=== PATIENT | female | born 1985 | race American Indian/Alaskan Native ===

== ENCOUNTER 2018-06-23 19:30 | Inpatient (IN) | payer BC ==
[2018-06-23] MEDS ORDERED: Sodium Chloride 0.9% 1,000 ML IV STA (20:58)
--- NOTE | 2018-06-23 21:01 | C.PDOC ---
History Of Present Illness 33 y/o F c PMHx asthma p/w abdominal pain x 2 weeks. Pain is epigastric, severe , sharp, worse after eating, associated with nausea. Denies fever, chills, chest pain, dyspnea, vomiting, dysuria, vaginal bleeding, diarrhea. Time Seen by Provider: 06/23/18 20:43 Chief Complaint (Nursing): Abdominal Pain History Per: Patient History/Exam Limitations: no limitations Onset/Duration Of Symptoms: Days Current Symptoms Are (Timing): Still Present Severity: Severe Location Of Pain/Discomfort: Epigastric Quality Of Discomfort: Sharp Associated Symptoms: Nausea. denies: Fever, Chills, Urinary Symptoms Exacerbating Factors: Food Alleviating Factors: None Recent travel outside of the [place]: No Additional History Per: Patient Abnormal Vaginal Bleeding: No Past Medical History Reviewed: Historical Data, Nursing Documentation, Vital Signs Vital Signs: Last Vital Signs Temp 99.4 F 06/23/18 22:02 Pulse 75 06/23/18 22:02 Resp 17 06/23/18 22:02 BP 128/84 06/23/18 22:02 Pulse Ox 99 06/23/18 22:02 - Medical History PMH: Asthma Surgical History: No Surg Hx Family History: States: Unknown Family Hx - Social History Hx Alcohol Use: Yes Hx Substance Use: No Review Of Systems Except As Marked, All Systems Reviewed And Found Negative. Constitutional: Negative for: Fever Cardiovascular: Negative for: Chest Pain Physical Exam - Physical Exam Additional Physical Exam Comments: Constitutional: No acute distress. Head: Normocephalic. Atraumatic. Eyes: PERRL. ENT: Moist mucous membranes. Neck: Supple. Cardiovascular: Regular rate. Radial pulse 2+ bilaterally. Chest: No tenderness. Respiratory: Clear to auscultation bilaterally. GI: Soft. RUQ/epigastric tenderness with guarding. Nondistended. Back: No CVA tenderness. Musculoskeletal: No tenderness or swelling of extremities. Skin: No rash. Neurologic: Alert, no focal deficit. ED Course And Treatment - Laboratory Results Result Diagrams: 06/23/18 21:22 06/23/18 21:22 O2 Sat by Pulse Oximetry: 99 (ON RA) Pulse Ox Interpretation: Normal Medical Decision Making Medical Decision Making: Plan: * Labs * IV fluids * Toradol 30 mg IVP * Zofran 8 mg IVP * Urine culture * UA * US abdomen IMPRESSION: 1. Gallbladder stones largest 2 cm. Nonmobile stone in the gallbladder neck. No pericholecystic fluid. 2. Common bile duct prominent 0.[address] Webb accepts to his service. Dr. Francis and Luis consults placed. Disposition - Disposition Disposition: HOSPITALIZED Disposition Time: 23:44 Condition: GUARDED Forms: [facility] (Chinese) - Clinical Impression Clinical Impression: Common bile duct dilatation, Cholelithiasis - Scribe Statement The provider has reviewed the documentation as recorded by the Scribe Benjamin Cooper All medical record entries made by the Scribe were at my direction and personally dictated by me. I have reviewed the chart and agree that the record accurately reflects my personal performance of the history, physical exam, medical decision making, and the department course for this patient. I have also personally directed, reviewed, and agree with the discharge instructions and disposition.
[2018-06-23] MEDS ORDERED: Sodium Chloride 0.9% 1,000 ML ONE (21:14)
[2018-06-23 21:28] LABS: BASO % 0.5 % (0.0-2.0); EOS # 0.2 K/uL (0.0-0.7); EOS % 2.9 % (0.0-4.0); HEMOGLOBIN 13.2 g/dL (11.0-16.0); LYMPH # 3.8 K/uL (1.0-4.3); LYMPH % 51.4 % (20.0-40.0); MEAN CELL VOLUME 81.7 fL (81.0-99.0); MEAN CORPUSCULAR HEMOGLOBIN 27.3 pg (27.0-31.0); MEAN CORPUSCULAR HGB CONC 33.4 g/dL (33.0-37.0); MEAN PLATELET VOLUME 8.4 fL (7.2-11.7); MONO # 0.5 K/uL (0.0-0.8); MONO % 6.4 % (0.0-10.0); NEUT # 2.9 K/uL (1.8-7.0); NEUT % 38.8 % (50.0-75.0); NRBC % 0.1 % (0.0-2.0); RBC 4.85 Mil/uL (3.80-5.20); RED CELL DISTRIBUTION WIDTH 12.6 % (11.5-14.5); WHITE BLOOD COUNT 7.4 K/uL (4.8-10.8)
[2018-06-23 21:54] LABS: ALB/GLOB RATIO 1.3 (1.0-2.1); ALBUMIN 4.5 g/dL (3.5-5.0); ALT/SGPT 43 U/L (9-52); AST/SGOT 51 U/L (14-36); BLOOD UREA NITROGEN 8 mg/dL (7-17); CALCIUM 9.5 mg/dl (8.6-10.4); GFR NON-AFRICAN AMERICAN > 60; LIPASE 61 U/L (23-300)
[2018-06-23 23:21] LABS: SQUAMOUS EPITHIAL 7 /hpf (0-5); URINE BACTERIA OCC (<OCC); URINE BILIRUBIN NEGATIVE (NEGATIVE); URINE BLOOD NEGATIVE (NEGATIVE); URINE CLARITY Hazy (Clear); URINE COLOR Amber (YELLOW); URINE GLUCOSE (UA) 1+ mg/dL (Normal); URINE LEUKOCYTE ESTERASE TRACE Leu/uL (Negative); URINE PROTEIN 1+ mg/dL (NEGATIVE); URINE UROBILINOGEN NORMAL mg/dL (0.2-1.0)
--- NOTE | 2018-06-24 06:01 | CP.PCM.CON ---
History of Present Illness - History of Present Illness History of Present Illness: General Surgery Consult Note: Dr. Smith 33F with PMHx of asthma presents to [facility] ED with complaints of abdominal pain. Patient states she's had abdominal pain along epigastric region for the past 2 weeks. Reports having multiple episodes of non-bloody emesis throughout the past 2 weeks. Since pain did not improve she decided to come to ED. Patient reports pain is illicited with ingestion of fatty foods. PMH: as stated above PSH: denies All: Denies Review of Systems - Review of Systems Review of Systems: 12 pt ROS unremarkable, except as stated in HPI Past Patient History - Past Medical History & Family History Past Medical History?: Yes - Past Social History Smoking Status: Never Smoked - PULMONARY Hx Asthma: Yes - MUSCULOSKELETAL/RHEUMATOLOGICAL Hx Falls: No - PSYCHIATRIC Hx Substance Use: No - SURGICAL HISTORY Hx Surgeries: No - ANESTHESIA Hx Anesthesia: Yes Hx Anesthesia Reactions: No Meds Allergies/Adverse Reactions: Allergies Allergy/AdvReac Type Severity Reaction Status Date / Time No Known Allergies Allergy Verified 06/23/18 20:00 - Medications Medications: Current Medications Dextrose/Sodium Chloride (Dextrose 5%/0.45% Ns 1000 Ml) 1,000 mls @ 100 mls/hr IV .Q10H LALIT Morphine Sulfate (Morphine) 2 mg IVP Q4 PRN PRN Reason: Pain, moderate (4-7) Pantoprazole Sodium (Protonix Inj) 40 mg IVP DAILY LALIT Physical Exam - Constitutional Appears: No Acute Distress - Head Exam Head Exam: NORMOCEPHALIC - Eye Exam Eye Exam: Normal appearance - ENT Exam ENT Exam: Mucous Membranes Moist - Respiratory Exam Respiratory Exam: NORMAL BREATHING PATTERN - Cardiovascular Exam Cardiovascular Exam: +S1, +S2 - GI/Abdominal Exam GI & Abdominal Exam: Soft, Tenderness. absent: Distended, Firm, Guarding, Rebound, Rigid - Neurological Exam Neurological exam: Alert, Oriented x3 - Psychiatric Exam Psychiatric exam: Normal Mood - Skin Skin Exam: Dry, Intact, Warm Results - Vital Signs Recent Vital Signs: Last Vital Signs Temp 98.0 F 06/24/18 02:00 Pulse 70 06/24/18 02:00 Resp 18 06/24/18 02:00 BP 125/81 06/24/18 02:00 Pulse Ox 98 06/24/18 02:00 - Labs Result Diagrams: 06/23/18 21:22 06/23/18 21:22 Labs: Laboratory Results - last 24 hr 06/23/18 06/23/18 06/23/18 21:22 21:22 21:22 WBC 7.4 RBC 4.85 Hgb 13.2 Hct 39.7 MCV 81.7 MCH 27.3 MCHC 33.4 RDW 12.6 Plt Count 292 MPV 8.4 Neut % (Auto) 38.8 L Lymph % (Auto) 51.4 H [place] % (Auto) 6.4 Eos % (Auto) 2.9 Baso % (Auto) 0.5 Neut # (Auto) 2.9 Lymph # (Auto) 3.8 [place] # (Auto) 0.5 Eos # (Auto) 0.2 Baso # (Auto) 0.0 Sodium 138 Potassium 4.2 Chloride 100 Carbon Dioxide 27 Anion Gap 15 BUN 8 Creatinine 0.7 Est GFR ( Amer) > 60 Est GFR (Non-Af Amer) > 60 Random Glucose 170 H Calcium 9.5 Total Bilirubin 1.2 AST 51 H ALT 43 Alkaline Phosphatase 70 Total Protein 8.1 Albumin 4.5 Globulin 3.5 Albumin/Globulin Ratio 1.3 Lipase 61 Beta HCG, Quant < 2.39 Urine Color Urine Clarity Urine pH Ur Specific [place] Urine Protein Urine Glucose (UA) Urine Ketones Urine Blood Urine Nitrate Urine Bilirubin Urine Urobilinogen Ur Leukocyte Esterase Urine WBC (Auto) Urine RBC (Auto) Ur Squamous Epith Cells Urine Bacteria Urine HCG, Qual 06/23/18 06/23/18 23:09 23:09 WBC RBC Hgb Hct MCV MCH MCHC RDW Plt Count MPV Neut % (Auto) Lymph % (Auto) [place] % (Auto) Eos % (Auto) Baso % (Auto) Neut # (Auto) Lymph # (Auto) [place] # (Auto) Eos # (Auto) Baso # (Auto) Sodium Potassium Chloride Carbon Dioxide Anion Gap BUN Creatinine Est GFR ( Amer) Est GFR (Non-Af Amer) Random Glucose Calcium Total Bilirubin AST ALT Alkaline Phosphatase Total Protein Albumin Globulin Albumin/Globulin Ratio Lipase Beta HCG, Quant Urine Color Nava Urine Clarity Hazy Urine pH 5.0 Ur Specific Canadian 1.027 Urine Protein 1+ H Urine Glucose (UA) 1+ Urine Ketones 2+ H Urine Blood Negative Urine Nitrate Negative Urine Bilirubin Negative Urine Urobilinogen Normal Ur Leukocyte Esterase Trace Urine WBC (Auto) 4 Urine RBC (Auto) 2 Ur Squamous Epith Cells 7 H Urine Bacteria Occ H Urine HCG, Qual Negative - Imaging and Cardiology US - abdomen Status: Image reviewed by me, Report reviewed by me Assessment & Plan - Assessment and Plan (Free Text) Assessment: 33F with symptomatic cholelithiasis Plan: NPO IVF ABx Analgesic prn Anti-emetic prn Will plan for laparoscopic cholecystectomy Further recs per Dr. Luis Santana PGY3
--- NOTE | 2018-06-24 07:14 | CP.PCM.PN ---
Subjective - Date & Time of Evaluation Date of Evaluation: 06/24/18 Time of Evaluation: 09:00 - Subjective Subjective: Progress Note for Dr. Webb's Service Patient seen and examined at bedside at bedside. Patient currently states her pain is well controlled. Denied any nausea, vomiting, or abdominal pain. -- This is a 33 year old female with PMHx of Asthma who presents with 2 weeks of RUQ abdominal pain worse with food. Patient reported the pain was intermittent, sharp in nature. She attributed the pain to being gassy but when the pain became very severe, she decided to come to the ED. She reports she had a sharp pain like this 2-3 years ago but the pain self-resolved, without any medical attention. Denied fever, chills, n/v/d/c. PMHx: Asthma PSHx: Denied Meds: Albuterol, Symbicort, Singular SHx: Denied ETOH, tobacco or illicit drug use FHx: Unremarkable Objective - Vital Signs/Intake and Output Vital Signs (last 24 hours): Temp Pulse Resp BP Pulse Ox 98.0 F 70 18 125/81 98 06/24/18 02:00 06/24/18 02:00 06/24/18 02:00 06/24/18 02:00 06/24/18 02:00 - Medications Medications: Current Medications Dextrose/Sodium Chloride (Dextrose 5%/0.45% Ns 1000 Ml) 1,000 mls @ 100 mls/hr IV .Q10H LALIT Morphine Sulfate (Morphine) 2 mg IVP Q4 PRN PRN Reason: Pain, moderate (4-7) Ondansetron HCl (Zofran Inj) 4 mg IVP Q6H PRN PRN Reason: Nausea/Vomiting Pantoprazole Sodium (Protonix Inj) 40 mg IVP DAILY LALIT - Labs Labs: 06/23/18 21:22 06/23/18 21:22 - Constitutional Appears: No Acute Distress - Head Exam Head Exam: NORMAL INSPECTION, NORMOCEPHALIC - Eye Exam Eye Exam: EOMI, Normal appearance, PERRL Pupil Exam: NORMAL ACCOMODATION - ENT Exam ENT Exam: Mucous Membranes Moist - Respiratory Exam Respiratory Exam: Clear to Ausculation Bilateral, NORMAL BREATHING PATTERN. absent: Decreased Breath Sounds, Rales, Rhonchi, Wheezes - Cardiovascular Exam Cardiovascular Exam: REGULAR RHYTHM, RRR - GI/Abdominal Exam GI & Abdominal Exam: Soft, Tenderness (RUQ TTP), Normal Bowel Sounds. absent: Distended - Rectal Exam Rectal Exam: Deferred - Extremities Exam Extremities Exam: Normal Inspection. absent: Pedal Edema, Tenderness - Neurological Exam Neurological Exam: Alert, Awake, Oriented x3 - Psychiatric Exam Psychiatric exam: Normal Affect, Normal Mood - Skin Skin Exam: Dry, Intact, Normal Color, Warm Assessment and Plan - Assessment and Plan (Free Text) Plan: Cholelithiasis - General Surgery consulted - Dr. Smith - Plan for lap sung 06/25/18 Imaging: - Abdominal US: 1. Cholelithiasis in the gallbladder with prominent calculus measuring up to 2 centimeters. Nonmobile calculus in the gallbladder neck. Normal wall thickness of 2.6 mm. Negative sonographic Theodore's sign. 2. Prominent common bile duct measuring up to 6 millimeters. Clinical correlation. 3. Prominent liver measuring 18.2 centimeters in length. Increased echogenicity of the hepatic parenchymal cortex suggestive for fatty infiltration versus hepatic parenchymal disease. Clinical correlation. Meds: - D5 1/2 NS @100cc/hr, Morphine PRN, Zofran PRN - Zosyn as per surgery Asthma - Albuterol PRN, Singular daily Prophylactic Measures - GI PPX: Protonix IV - DVT PPX: SCDs, VTE c/i due preop Disposition: Plan for lap sung 06/25/18 All medical management per Dr. Webb. Case discussed w/ Dr. Webb, Cindy Myers DO, PGY2
[2018-06-24 08:34] LABS: BASO % 0.3 % (0.0-2.0); EOS # 0.2 K/uL (0.0-0.7); EOS % 3.1 % (0.0-4.0); HEMOGLOBIN 11.5 g/dL (11.0-16.0); LYMPH # 2.4 K/uL (1.0-4.3); LYMPH % 46.3 % (20.0-40.0); MEAN CELL VOLUME 82.7 fL (81.0-99.0); MEAN CORPUSCULAR HEMOGLOBIN 27.9 pg (27.0-31.0); MEAN CORPUSCULAR HGB CONC 33.7 g/dL (33.0-37.0); MEAN PLATELET VOLUME 8.4 fL (7.2-11.7); MONO # 0.3 K/uL (0.0-0.8); MONO % 6.8 % (0.0-10.0); NEUT # 2.2 K/uL (1.8-7.0); NEUT % 43.5 % (50.0-75.0); RBC 4.13 Mil/uL (3.80-5.20); RED CELL DISTRIBUTION WIDTH 12.7 % (11.5-14.5); WHITE BLOOD COUNT 5.1 K/uL (4.8-10.8)
[2018-06-24] MEDS: Piperacillin/Tazobact 3.375 GM in Sodium Chloride 100 ML IVPB SCH ×3 (08:34→20:00)
[2018-06-24 09:08] LABS: ALB/GLOB RATIO 1.2 (1.0-2.1); ALBUMIN 3.5 g/dL (3.5-5.0); ALT/SGPT 44 U/L (9-52); AST/SGOT 36 U/L (14-36); BLOOD UREA NITROGEN 6 mg/dL (7-17); CALCIUM 8.2 mg/dl (8.6-10.4); GFR NON-AFRICAN AMERICAN > 60
--- NOTE | 2018-06-24 10:15 | US ---
Abdominal ultrasound History: Abdominal pain. Comparison: None available. Technique: Real-time sonography was performed through the abdomen. Findings: Limited study secondary to large patient body habitus. Liver: 18.2 centimeters in length. Increased echogenicity of the hepatic parenchymal cortex suggestive for fatty infiltration versus hepatic parenchymal disease. Clinical correlation. Gallbladder: Cholelithiasis. Calculi measure up to 2 centimeters. Nonmobile gallstone in the gallbladder neck. Normal wall thickness of 2.6 millimeters. Negative sonographic Theodore's sign. Common bile duct is prominent measuring up to 6 millimeters. Limited visualization of the pancreas. Spleen measures 9.1 centimeters in length, within normal limits. Visualized aorta and IVC are preserved. Right kidney: 10.3 x 3.7 x 4.2 centimeters. No calculi or hydronephrosis. Left Kidney: 11.0 x 4.7 x 5.2 centimeters. No calculi or hydronephrosis. Impression: 1. Cholelithiasis in the gallbladder with prominent calculus measuring up to 2 centimeters. Nonmobile calculus in the gallbladder neck. Normal wall thickness of 2.6 mm. Negative sonographic Theodore's sign. 2. Prominent common bile duct measuring up to 6 millimeters. Clinical correlation. 3. Prominent liver measuring 18.2 centimeters in length. Increased echogenicity of the hepatic parenchymal cortex suggestive for fatty infiltration versus hepatic parenchymal disease. Clinical correlation. 4. Limited visualization of the pancreas. These findings were preliminarily reported at 11:27 p.m. on 06/23/[address] Shaheen Hassan from [employer].
[2018-06-24] MEDS: Dextrose 5%/0.45% NS 1,000 ML IV SCH ×3 (11:18→20:00)
[2018-06-24 17:35] LABS: INR 1.1; PROTHROMBIN TIME 12.2 SECONDS (9.7-12.2)
--- NOTE | 2018-06-24 19:41 | PN ---
Copied To: Brittny Branch MD Attending MD: Brittny Moran MD DATE: 06/24/2018 LOCATION: 553, bed A. SUBJECTIVE: This is a 32-kppf-xow-female seen and examined initially for GI consultation on 06/23/2018, reexamined again today with less episodes of abdominal pain, awake, alert, and oriented. No reported active bleeding. The entire chart was reviewed including but not limited to most recent lab and radiology study results, current and the previous medication list, current and the previous medical events. Today's lab showed normal CBC with increased blood glucose level 228, low calcium 8.2, magnesium 1.4 with normal liver function test. Official report of the recently done abdominal ultrasound seen, indicative of cholelithiasis with common bile duct measuring up to 8 mm. PHYSICAL EXAMINATION: GENERAL: This is a 33-year-old female, awake, alert, and oriented. Afebrile with less complaint of abdominal pain. No evidence of jaundice. HEENT: Showed pale, dry oral mucous membrane. Nonicteric sclerae. LUNGS: Few scattered crepitation. Decrease air entry at bases. HEART: Positive S1 and S2. ABDOMEN: Soft with mild generalized tenderness. No mass or organomegaly. No rebound tenderness or guarding. EXTREMITIES: Without significant clubbing, cyanosis, or edema. NEUROLOGIC: No reported new neurological deficits, sensory, or motor. No reported new focal deficits. IMPRESSION: 1. Cholelithiasis. 2. Re-exacerbation of peptic ulcer disease. 3. Known history of bronchial asthma. SUGGESTION: 1. Continue current management. 2. Endoscopy to be scheduled for evaluation of the upper GI tract. Brittny Branch MD
[2018-06-25] MEDS: Piperacillin/Tazobact 3.375 GM in Sodium Chloride 100 ML IVPB SCH ×4 (01:12→19:50)
[2018-06-25 08:15] LABS: BASO % 0.3 % (0.0-2.0); EOS # 0.2 K/uL (0.0-0.7); EOS % 3.5 % (0.0-4.0); HEMOGLOBIN 11.7 g/dL (11.0-16.0); LYMPH # 2.5 K/uL (1.0-4.3); LYMPH % 48.7 % (20.0-40.0); MEAN CELL VOLUME 82.5 fL (81.0-99.0); MEAN CORPUSCULAR HEMOGLOBIN 27.6 pg (27.0-31.0); MEAN CORPUSCULAR HGB CONC 33.5 g/dL (33.0-37.0); MEAN PLATELET VOLUME 8.6 fL (7.2-11.7); MONO # 0.4 K/uL (0.0-0.8); MONO % 7.3 % (0.0-10.0); NEUT # 2.1 K/uL (1.8-7.0); NEUT % 40.2 % (50.0-75.0); NRBC % 0.1 % (0.0-2.0); RBC 4.24 Mil/uL (3.80-5.20); RED CELL DISTRIBUTION WIDTH 12.4 % (11.5-14.5); WHITE BLOOD COUNT 5.2 K/uL (4.8-10.8)
--- NOTE | 2018-06-25 08:31 | HP ---
Copied To: Kate Webb MD Attending MD: Kate Webb MD HISTORY OF PRESENT ILLNESS: A 33-year-old female with a chief complaint of abdominal pain, gallstones, obstructive common bile duct. The patient was having abdominal pain one time in the past. PHYSICAL EXAMINATION: GENERAL: The patient is awake, alert and oriented. VITAL SIGNS: Temperature 98.9. HEENT: Within normal limits. NECK: Supple. CHEST: Symmetrical. HEART: Regular. ABDOMEN: Soft. EXTREMITIES: No edema. ASSESSMENT AND PLAN: The patient suffers from gallstones . Patient get bed rest, surgical consult, GI consult. Kate Webb MD
[2018-06-25 08:48] LABS: ALB/GLOB RATIO 1.1 (1.0-2.1); ALBUMIN 3.3 g/dL (3.5-5.0); ALT/SGPT 43 U/L (9-52); AST/SGOT 36 U/L (14-36); BLOOD UREA NITROGEN 4 mg/dL (7-17); CALCIUM 8.4 mg/dl (8.6-10.4); GFR NON-AFRICAN AMERICAN > 60
[2018-06-25] MEDS ORDERED: Midazolam 2 MG/2 ML VIAL ONE (09:05)
[2018-06-25] MEDS ORDERED: Propofol 10 mg/ml Inj (20 ML) ONE (09:06)
[2018-06-25] MEDS ORDERED: Iohexol 240 (50 ml) ONE (09:12)
[2018-06-25] MEDS ORDERED: Lidocaine Hydrochloride 5 ML INJ ONE (10:09)
[2018-06-25] MEDS ORDERED: Succinylcholine Chloride 20 mg/ml Syr (5 ml) IV ONE (10:09)
[2018-06-25] MEDS ORDERED: Rocuronium 10 mg/ml (10 ml) ONE (10:09)
[2018-06-25] MEDS ORDERED: Neostigmine Methylsulfate 3mg/3ml Syringe IV ONE (10:09)
--- NOTE | 2018-06-25 11:30 | PCM.SURG1 ---
Surgeon's Initial Post Op Note - Surgeon's Notes Surgeon: Luis Production Support Consultant: Dominga PGY4 Type of Anesthesia: General Endo Pre-Operative Diagnosis: Cholecystitis Operative Findings: acutely inflamed gallbladder Post-Operative Diagnosis: same Operation Performed: laparoscopic cholecystectomy with IOC Specimen/Specimens Removed: gallbladder Estimated Blood Loss: EBL {In ML}: 100 Blood Products Given: N/A Drains Used: Miguel Angel Post-Op Condition: Good Date of Surgery/Procedure: 06/25/18 Time of Surgery/Procedure: 11:30
[2018-06-25] MEDS: HYDROmorphone 0.5 mg/0.5 ml ISec IVP PRN ×2 (11:44→12:32)
[2018-06-25] MEDS ORDERED: Lactated Ringer's 1,000 ML IV ONE ×2 (12:15)
[2018-06-25 14:17] VITALS: RESP 20
--- NOTE | 2018-06-25 14:34 | CP.PCM.PN ---
Subjective - Date & Time of Evaluation Date of Evaluation: 06/25/18 Time of Evaluation: 09:00 - Subjective Subjective: Progress Note for Dr. Webb's Service Patient seen and examined at bedside at bedside. Patient reported having abdominal pain. Plan for OR today. Denied fever, chills, headache, n/v/d/c/ or urinary symptoms. Objective - Vital Signs/Intake and Output Vital Signs (last 24 hours): Temp Pulse Resp BP Pulse Ox 97.9 F 78 20 144/104 H 96 06/25/18 14:00 06/25/18 14:00 06/25/18 14:00 06/25/18 14:00 06/25/18 14:00 Intake and Output: 06/25/18 06/25/18 06:59 18:59 Intake Total 2000 Output Total 550 Balance 1450 - Medications Medications: Current Medications Hydromorphone HCl (Dilaudid) 1 mg IVP Q4H PRN PRN Reason: Pain, moderate (4-7) Dextrose/Sodium Chloride (Dextrose 5%/0.45% Ns 1000 Ml) 1,000 mls @ 100 mls/hr IV .Q10H LALIT Last Admin: 06/24/18 20:00 Dose: 100 mls/hr Piperacillin Sod/Tazobactam (Sod 3.375 gm/ Sodium Chloride) 100 mls @ 200 mls/ hr IVPB Q6H LALIT PRN Reason: Protocol Last Admin: 06/25/18 14:06 Dose: 200 mls/hr Montelukast Sodium (Singulair) 10 mg PO HS LALIT Last Admin: 06/24/18 21:31 Dose: 10 mg Morphine Sulfate (Morphine) 1 mg IVP STAT STA Stop: 06/25/18 14:30 Ondansetron HCl (Zofran Inj) 4 mg IVP Q6H PRN PRN Reason: Nausea/Vomiting Pantoprazole Sodium (Protonix Inj) 40 mg IVP DAILY [facility] Last Admin: 06/25/18 10:53 Dose: Not Given - Labs Labs: 06/25/18 08:06 06/25/18 08:06 PT 12.2 SECONDS (9.7-12.2) 06/24/18 17:20 INR 1.1 06/24/18 17:20 APTT 31 SECONDS (21-34) 06/24/18 17:20 - Additional Findings Additional findings: - Constitutional Appears: No Acute Distress - Head Exam Head Exam: NORMAL INSPECTION, NORMOCEPHALIC - Eye Exam Eye Exam: EOMI, Normal appearance, PERRL Pupil Exam: NORMAL ACCOMODATION - ENT Exam ENT Exam: Mucous Membranes Moist - Respiratory Exam Respiratory Exam: Clear to Ausculation Bilateral, NORMAL BREATHING PATTERN. absent: Decreased Breath Sounds, Rales, Rhonchi, Wheezes - Cardiovascular Exam Cardiovascular Exam: REGULAR RHYTHM, RRR - GI/Abdominal Exam GI & Abdominal Exam: Soft, Tenderness (RUQ TTP), Normal Bowel Sounds. absent: Distended - Rectal Exam Rectal Exam: Deferred - Extremities Exam Extremities Exam: Normal Inspection. absent: Pedal Edema, Tenderness - Neurological Exam Neurological Exam: Alert, Awake, Oriented x3 - Psychiatric Exam Psychiatric exam: Normal Affect, Normal Mood - Skin Skin Exam: Dry, Intact, Normal Color, Warm Assessment and Plan - Assessment and Plan (Free Text) Plan: Cholelithiasis - General Surgery consulted - Dr. Smith - S/P lap sung 06/25/18 Imaging: - Abdominal US: 1. Cholelithiasis in the gallbladder with prominent calculus measuring up to 2 centimeters. Nonmobile calculus in the gallbladder neck. Normal wall thickness of 2.6 mm. Negative sonographic Theodore's sign. 2. Prominent common bile duct measuring up to 6 millimeters. Clinical correlation. 3. Prominent liver measuring 18.2 centimeters in length. Increased echogenicity of the hepatic parenchymal cortex suggestive for fatty infiltration versus hepatic parenchymal disease. Clinical correlation. Meds: - D5 1/2 NS @100cc/hr, Morphine PRN, Zofran PRN - Zosyn as per surgery Asthma - Albuterol PRN, Singular daily Prophylactic Measures - GI PPX: Protonix IV - DVT PPX: SCDs, VTE c/i due preop Disposition: S/P lap sung 06/25/18. Pending tomorrow's clinical plan, plan for discharge tomorrow. All medical management per Dr. Webb. Case discussed w/ Dr. Webb, Cindy Myers DO, PGY2
--- NOTE | 2018-06-25 15:14 | PN ---
Copied To: Brittny Branch MD Attending MD: Brittny Branch MD DATE: 06/25/2018 LOCATION: 553, bed A. SUBJECTIVE: This is a 33-year-old female seen early in rounds, was scheduled initially for EGD early this morning, but the patient was taken to the OR for cholecystectomy with reported episode of mild mid epigastric pain with nausea and dyspepsia. Denied any active bleeding, chills or fever. The entire chart is reviewed including but not limited to the most recent lab and radiology study results, current and the previous medication, current and the previous medical events. The patient has normal CBC with blood glucose level of 231, calcium 8.4, phosphorus 2.4, albumin 3.3 with absolutely normal liver function test without chills or fever. PHYSICAL EXAMINATION: GENERAL: A 33-year-old female. VITAL SIGNS: Afebrile with pulse of 72, respiratory rate 20 to 22, blood pressure of 136/86. HEENT: Showed mildly pale oral mucous membranes. Nonicteric sclerae. LUNGS: Few scattered crepitation. Decreased air entry at bases. HEART: Positive S1 and S2. ABDOMEN: Soft. Bowel sounds are present. No mass or organomegaly. No rebound tenderness or guarding, but mid epigastric tenderness. EXTREMITIES: Without significant edema, clubbing or cyanosis. NEUROLOGIC: No reported new neurological deficits, sensory or motor. Review of the recently done ultrasound showed cholelithiasis with negative sonographic Theodore sign with normal wall thickening of the gallbladder. IMPRESSION: 1. Cholelithiasis. No leukocytosis. No abnormal liver function test. 2. Re-exacerbation of peptic ulcer disease, possibility of gastric versus duodenal ulcer . 3. Known history of bronchial asthma. SUGGESTIONS: 1. Continue current management. 2. The patient anyhow will need endoscopic evaluation of the GI tract when she is more stable clinically, that to be discussed with Dr. Webb. Brittny Branch MD
[2018-06-25] MEDS: HYDROmorphone 1 mg/ml ISec IVP PRN ×2 (16:16→21:33)
[2018-06-25] MEDS: Dextrose 5%/0.45% NS 1,000 ML IV SCH (16:37)
--- NOTE | 2018-06-25 17:11 | RAD ---
Date of service: 06/25/2018 PROCEDURE: Intraoperative Fluoroscopy. HISTORY: CHOLELITHIASIS FINDINGS: Fluoroscopic assistance was provided for intraoperative cholangiography. Please refer to the operative report from [facility] Alvarez. 16.1 seconds of fluoro time was utilized with a total radiation cumulative dose of 4.78 mGy.
[2018-06-25 17:25] LABS: HEMOGLOBIN 11.3 g/dL (11.0-16.0); MEAN CELL VOLUME 82.6 fL (81.0-99.0); MEAN CORPUSCULAR HEMOGLOBIN 27.2 pg (27.0-31.0); MEAN PLATELET VOLUME 8.3 fL (7.2-11.7); RBC 4.17 Mil/uL (3.80-5.20); RED CELL DISTRIBUTION WIDTH 12.6 % (11.5-14.5); WHITE BLOOD COUNT 7.8 K/uL (4.8-10.8)
--- NOTE | 2018-06-25 22:29 | OP ---
Copied To: Kulwinder Smith Jr., MD Attending MD: Kulwinder Smith Jr., MD PROCEDURE DATE: 06/24/2018 PREOPERATIVE DIAGNOSIS: Cholecystitis. POSTOPERATIVE DIAGNOSIS: Acute cholecystitis. PROCEDURE CARRIED OUT: Laparoscopic cholecystectomy with C-arm cholangiogram. SURGEON: Kulwinder Smith Jr., MD ENTERTAINMENT USHER: Rikki Orr DO ANESTHESIOLOGIST: Dr. Crawford. INDICATIONS: The patient is a young woman with abdominal pain, found to have gallstones. OPERATIVE FINDINGS: Cholangiogram carried out to the cystic duct showed free flow into the duodenum. Visualization of the hepatic radicles, no evidence of any retained stones or strictures. The rest of the intraoperative findings were unremarkable except the fact that the liver bed was oozy. We spent a great deal of time cauterizing this, checking it again and again. There was a persistent ooze from the entire liver surface. Nonetheless, we constantly maintained control of this. We placed the drain at the end because the excessive amount of fluid after irrigation. We terminated the procedure. Blood loss during the procedure was only 100 mL, but there was persistent ooze. DESCRIPTION OF PROCEDURE: The patient was given general anesthesia and intravenous antibiotics. Venodyne boots were applied. Franklin trocar was inserted by a cut-down technique. Two additional 5-mm trocars were placed. Cystic duct, cystic artery, and large adjacent lymph node were identified. After these had been identified and controlled, cholangiogram was carried out as mentioned above. The cystic duct and cystic artery were clipped. We then removed the gallbladder from the field to a bag. The bag ruptured during this removal. with multiple stones of varying sizes including one very large stone. After this had been done, we checked the liver bed again for hemostasis. We cauterized again in different locations and then terminated the procedure after inserting a drain. Airtight closure of the umbilicus with the small preexisting umbilical hernia may provide for future hernia at this location. There were no other unusual complications or findings. OPERATION CARRIED OUT: Laparoscopic cholecystectomy and C-arm cholangiogram. Kulwinder Smith Jr., MD [facility] # [id number]
[2018-06-26] MEDS: Dextrose 5%/0.45% NS 1,000 ML IV SCH ×2 (01:16→11:45)
[2018-06-26] MEDS: Piperacillin/Tazobact 3.375 GM in Sodium Chloride 100 ML IVPB SCH (01:17)
[2018-06-26] MEDS: HYDROmorphone 1 mg/ml ISec IVP PRN (07:47)
--- NOTE | 2018-06-26 08:35 | CP.PCM.PN ---
Subjective - Date & Time of Evaluation Date of Evaluation: 06/26/18 Time of Evaluation: 08:32 - Subjective Subjective: Surgery: Dr. Smith Pt seen and examined. No acute events overnight. Pain is much improved. Mild nausea overnight. Wants CLD for breakfast and wants to try regular diet for lunch. Objective - Vital Signs/Intake and Output Vital Signs (last 24 hours): Temp Pulse Resp BP Pulse Ox 98.3 F 78 20 117/70 95 06/26/18 07:00 06/26/18 07:00 06/26/18 07:00 06/26/18 07:00 06/26/18 07:00 Intake and Output: 06/26/18 06/26/18 06:59 18:59 Intake Total 1800 Output Total 50 Balance 1750 - Medications Medications: Current Medications Hydromorphone HCl (Dilaudid) 1 mg IVP Q4H PRN PRN Reason: Pain, moderate (4-7) Last Admin: 06/26/18 07:47 Dose: 1 mg Dextrose/Sodium Chloride (Dextrose 5%/0.45% Ns 1000 Ml) 1,000 mls @ 100 mls/hr IV .Q10H LALIT Last Admin: 06/26/18 01:16 Dose: 100 mls/hr Montelukast Sodium (Singulair) 10 mg PO HS LALIT Last Admin: 06/25/18 21:34 Dose: 10 mg Ondansetron HCl (Zofran Inj) 4 mg IVP Q6H PRN PRN Reason: Nausea/Vomiting Last Admin: 06/26/18 06:25 Dose: 4 mg Pantoprazole Sodium (Protonix Inj) 40 mg IVP DAILY LALIT Last Admin: 06/25/18 10:53 Dose: Not Given - Labs Labs: 06/25/18 17:07 06/25/18 08:06 PT 12.2 SECONDS (9.7-12.2) 06/24/18 17:20 INR 1.1 06/24/18 17:20 APTT 31 SECONDS (21-34) 06/24/18 17:20 - Constitutional Appears: Non-toxic, No Acute Distress - Head Exam Head Exam: ATRAUMATIC, NORMOCEPHALIC - Eye Exam Eye Exam: EOMI - ENT Exam ENT Exam: Mucous Membranes Moist - Neck Exam Neck Exam: Full ROM - Respiratory Exam Respiratory Exam: NORMAL BREATHING PATTERN. absent: Accessory Muscle Use, Respiratory Distress - GI/Abdominal Exam GI & Abdominal Exam: Soft, Tenderness (per-incisional). absent: Distended, Firm , Guarding, Rigid, Rebound Additional comments: R side vandana in place - Extremities Exam Extremities Exam: absent: Calf Tenderness, Pedal Edema - Neurological Exam Neurological Exam: Alert, Awake, Oriented x3 Assessment and Plan - Assessment and Plan (Free Text) Assessment: 33F w. cholecystitis, s/p lap sung POD#1 -Vandana 50cc/12hr serosang, will d/w attending removal of drain -F/U AM labs -CLD, will give regular diet for lunch -c/w pain meds -encourage ambulation / IS use -If diet tolerated and labs WNL, pt clear for D/C from surgical standpoint -d/w attending Zemaitis PGY4
--- NOTE | 2018-06-26 11:04 | PN ---
Copied To: Brittny Branch MD Attending MD: Brittny Branch MD DATE: 06/26/2018 LOCATION: 553, bed A. SUBJECTIVE: This is a 33-year-old female seen and examined early in rounds today post cholecystectomy, appeared to be a awake, alert, oriented with complaining of abdominal pain on and off post surgery without reported active bleeding, with a complaint of nausea, dyspepsia, but no vomiting. No bowel movement and no passing gas yet. The entire chart is reviewed including but not limited to the most recent lab and radiology study results, current and the previous medication list, current and the previous medical events and today's lab results still pending; however, yesterday lab, since the admission showed normal CBC. PHYSICAL EXAMINATION: GENERAL: A 33-year-old female. VITAL SIGNS: Afebrile with pulse of 80, respiratory rate 20 to 22, blood pressure of 124/76. HEENT: Showed pale, dry oral mucous membrane. Nonicteric sclerae. LUNGS: Few scattered crepitation. Decreased air entry at bases. HEART: Positive S1 and S2. ABDOMEN: Soft. Bowel sounds are present, but hypoactive. No mass or organomegaly. No rebound tenderness or guarding with positive right upper quadrant and midepigastric tenderness. EXTREMITIES: Without significant clubbing, cyanosis or edema. NEUROLOGIC: No reported new neurological deficits, sensory or motor. IMPRESSION: 1. Cholelithiasis. 2. Re-exacerbation of peptic ulcer disease. 3. Status post cholecystectomy. 4. Known history of bronchial asthma. SUGGESTIONS: 1. Continue current management. 2. Advance diet as per the business analyst consultant. 3. The patient may need endoscopic evaluation of the upper GI tract, could be done as outpatient. Brittny Branch MD
--- NOTE | 2018-06-26 13:08 | CP.PCM.PN ---
Subjective - Date & Time of Evaluation Date of Evaluation: 06/26/18 Time of Evaluation: 09:00 - Subjective Subjective: Progress Note for Dr. Webb's Service Patient seen and examined at bedside. She reports her abdominal pain is less and she is hungry. Denied fever, chills, headache, abdominal pain, n/v/d/c/ or urinary symptoms. Objective - Vital Signs/Intake and Output Vital Signs (last 24 hours): Temp Pulse Resp BP Pulse Ox 98.3 F 78 20 117/70 95 06/26/18 07:00 06/26/18 07:00 06/26/18 07:00 06/26/18 07:00 06/26/18 07:00 Intake and Output: 06/26/18 06/26/18 06:59 18:59 Intake Total 1800 Output Total 50 Balance 1750 - Medications Medications: Current Medications Hydromorphone HCl (Dilaudid) 1 mg IVP Q4H PRN PRN Reason: Pain, moderate (4-7) Last Admin: 06/26/18 07:47 Dose: 1 mg Dextrose/Sodium Chloride (Dextrose 5%/0.45% Ns 1000 Ml) 1,000 mls @ 100 mls/hr IV .Q10H LALIT Last Admin: 06/26/18 01:16 Dose: 100 mls/hr Montelukast Sodium (Singulair) 10 mg PO HS LALIT Last Admin: 06/25/18 21:34 Dose: 10 mg Ondansetron HCl (Zofran Inj) 4 mg IVP Q6H PRN PRN Reason: Nausea/Vomiting Last Admin: 06/26/18 06:25 Dose: 4 mg Pantoprazole Sodium (Protonix Inj) 40 mg IVP DAILY LALIT Last Admin: 06/26/18 10:37 Dose: 40 mg - Labs Labs: 06/25/18 17:07 06/25/18 08:06 PT 12.2 SECONDS (9.7-12.2) 06/24/18 17:20 INR 1.1 06/24/18 17:20 APTT 31 SECONDS (21-34) 06/24/18 17:20 - Additional Findings Additional findings: - Constitutional Appears: No Acute Distress - Head Exam Head Exam: NORMAL INSPECTION, NORMOCEPHALIC - Eye Exam Eye Exam: EOMI, Normal appearance, PERRL Pupil Exam: NORMAL ACCOMODATION - ENT Exam ENT Exam: Mucous Membranes Moist - Respiratory Exam Respiratory Exam: Clear to Ausculation Bilateral, NORMAL BREATHING PATTERN. absent: Decreased Breath Sounds, Rales, Rhonchi, Wheezes - Cardiovascular Exam Cardiovascular Exam: REGULAR RHYTHM, RRR - GI/Abdominal Exam GI & Abdominal Exam: Soft, Tenderness (RUQ TTP), dressing C/D/I, JOVAN drain removed , Normal Bowel Sounds. absent: Distended - Rectal Exam Rectal Exam: Deferred - Extremities Exam Extremities Exam: Normal Inspection. absent: Pedal Edema, Tenderness - Neurological Exam Neurological Exam: Alert, Awake, Oriented x3 - Psychiatric Exam Psychiatric exam: Normal Affect, Normal Mood - Skin Skin Exam: Dry, Intact, Normal Color, Warm Assessment and Plan - Assessment and Plan (Free Text) Plan: Cholelithiasis - General Surgery consulted - Dr. Smith - S/P lap sung 06/25/18 Imaging: - Abdominal US: 1. Cholelithiasis in the gallbladder with prominent calculus measuring up to 2 centimeters. Nonmobile calculus in the gallbladder neck. Normal wall thickness of 2.6 mm. Negative sonographic Theodore's sign. 2. Prominent common bile duct measuring up to 6 millimeters. Clinical correlation. 3. Prominent liver measuring 18.2 centimeters in length. Increased echogenicity of the hepatic parenchymal cortex suggestive for fatty infiltration versus hepatic parenchymal disease. Clinical correlation. Meds: - D5 1/2 NS @100cc/hr, Morphine PRN, Zofran PRN - Zosyn as per surgery Asthma - Albuterol PRN, Singular daily Prophylactic Measures - GI PPX: Protonix IV - DVT PPX: SCDs, VTE c/i due preop Disposition: S/P lap sung 06/25/18. Patient is stable for discharge. As per Dr. Webb and Surgical team, patient is safe for discharge. She is to follow up with Surgery in 1 week for post op check. Please follow up with your Primary Care Physician within 1 -2 weeks for routine follow up. Please advance your diet, slowly as you tolerate. Please take care and be well! All medical management per Dr. Webb. Case discussed w/ Cindy Rodriguez DO, PGY2
[2018-06-26] MEDS ORDERED: Pneumococcal 23-Valent Vaccine IM ONE (14:39)
[2018-06-26 15:56] VITALS: BP 143/89; PULSE 85; TEMP 98.4; O2SAT 96
[2018-06-26 16:05] LABS: HEMOGLOBIN 11.4 g/dL (11.0-16.0); MEAN CELL VOLUME 82.5 fL (81.0-99.0); MEAN CORPUSCULAR HEMOGLOBIN 27.2 pg (27.0-31.0); MEAN CORPUSCULAR HGB CONC 32.9 g/dL (33.0-37.0); MEAN PLATELET VOLUME 8.2 fL (7.2-11.7); RBC 4.19 Mil/uL (3.80-5.20); RED CELL DISTRIBUTION WIDTH 12.6 % (11.5-14.5); WHITE BLOOD COUNT 7.6 K/uL (4.8-10.8)
[2018-06-26 16:59] LABS: ALB/GLOB RATIO 1.2 (1.0-2.1); ALBUMIN 3.8 g/dL (3.5-5.0); ALT/SGPT 72 U/L (9-52); AST/SGOT 64 U/L (14-36); BLOOD UREA NITROGEN 3 mg/dL (7-17); CALCIUM 8.8 mg/dl (8.6-10.4); GFR NON-AFRICAN AMERICAN > 60
--- NOTE | 2018-06-27 07:15 | DS ---
Copied To: Kate Webb MD Attending MD: Kate Webb MD A 33 year-old female came to the hospital with chief complaint of abdominal pain, gallstones, . Gradual improvement, discharged, to be followed up as outpatient. Kate Webb MD
--- NOTE | 2018-06-27 20:04 | CON ---
Copied To: Brittny Branch MD Attending MD: Brittny Branch MD DATE: 06/23/[address] Branch to Dr. Kate Webb. HISTORY OF PRESENT ILLNESS: I was called for GI consultation by the admitting medical team. The patient is seen and fully examined on 06/23/[address] Kate Webb. The entire chart is reviewed including but not limited to the most recent lab and radiology study results, current and the previous medication list, current and the previous medical events, allergy to medication list as well as all the available current and the previous medical record. Case discussed with the staff at length. This is a 33-year-old female who was admitted to the hospital through the emergency room with a main complaint of severe midepigastric pain for two to three weeks prior to her admission, sharp in nature, severe at times, mainly with oral intake with persistent nausea, dyspepsia, but no reported actual vomiting. No significant recent change of bowel movement habit. No chest pain, palpitation, or evidence of active bleeding. PAST MEDICAL HISTORY: Including, 1. Bronchial asthma. 2. Peptic ulcer disease. FAMILY HISTORY: Unknown. SOCIAL HISTORY: Positive for alcohol intake, but no substance abuse with occasional smoking, but not recently. CURRENT MEDICATIONS: Post admission medication lists were reviewed. ALLERGIES TO MEDICATIONS: UNCLEAR. Initial blood workup post admission showed normal CBC including normal white blood cells, but elevated blood glucose level to 170. Ultrasound of the abdomen showed evidence of cholelithiasis, stone in the gallbladder neck, but without evidence of positive Theodore's sign and no evidence of acute cholecystitis, by radiology study results. Common bile duct near normal although reported to be slightly prominent at 0.6 cm. PHYSICAL EXAMINATION: GENERAL: A 33-year-old female VITAL SIGNS: With initially low grade temperature of 99.4, pulse of 72, respiratory rate 18 to 20, blood pressure of 132/82. HEENT: Showed mildly dry oral mucous membrane. Nonicteric sclerae. The patient has normal liver function test. LYMPH NODES: No lymphadenitis or lymphadenopathy. LUNGS: Scattered few crepitation with decreased air entry at bases. HEART: Positive S1 and S2. ABDOMEN: Soft, mildly obese, slightly distended with mild generalized tenderness, but mainly in the midepigastric area. No right upper quadrant tenderness. Bowel sounds are present. RECTAL: The patient refused. EXTREMITIES: Without significant clubbing, cyanosis or edema. IMPRESSION: 1. Re-exacerbation of peptic ulcer disease, to rule out gastric versus duodenal ulcer. 2. Cholelithiasis without clear evidence of acute cholecystitis. 3. Bronchial asthma by history. SUGGESTIONS: 1. Continue current management. 2. Serum lipase and amylase level. 3. IV Flagyl with vancomycin p.o. 4. Proton pump inhibitors. 5. Endoscopic evaluation of the upper GI tract when the patient is more stable clinically. 6. Surgical reevaluation. 7. Further recommendation to follow. Brittny Branch MD
== END 2018-06-26 16:57 | disposition home or self-care (01) | DRG 418 ==
LOC: C.ER 19:30 → C.9E 23:43 → C.5S 06-24 00:48
PROVIDERS: ADMIT Internal Medicine Pulmonary Disease; ATTEND Internal Medicine Pulmonary Disease
PROC: BF121ZZ Fluoroscopy of Gallbladder using Low Osmolar Contrast (ICD-10-PCS; 2018-06-25)
PROC: 0FT44ZZ Resection of Gallbladder, Percutaneous Endoscopic Approach (ICD-10-PCS; principal; 2018-06-25 09:00)
DX: K80.00 Calculus of gallbladder with acute cholecystitis without obstruction (principal); Z68.41 Body mass index [BMI] 40.0-44.9, adult; K27.9 Peptic ulcer, site unspecified, unspecified as acute or chronic, without hemorrhage or perforation; J45.909 Unspecified asthma, uncomplicated